=== PATIENT | female | born 1985 | race Caucasian/White ===

== ENCOUNTER 2019-01-24 03:47 | Inpatient (IN) | payer MEDICAID ==
[~2019-01-24] VITALS: Ht 154.9 cm; Wt 77.1 kg
[2019-01-24 03:50] VITALS: BP_SYST 136
--- NOTE | 2019-01-24 04:13 | NUR ---
Patient to ER bed 3 to gown for evaluation. Side rails up. Report given to Sybil SKINNER.
--- NOTE | 2019-01-24 04:22 | NUR ---
REPORT GIVEN TO JOHN SKINNER
--- NOTE | 2019-01-24 04:22 | NUR ---
patient arrived from home AOx4 with c/o post surgical opening. patient states she had Csection 12/27. patient states is was schedualed and had no complications otherwise. patients surgical site became red and irritated 7 days postop. patients redness got worse and she saw her primary care 01/21. patient was given antibiotics. patients surgical site is closed. patient has redness down into her pelvic area and above her surgical site. patient has moderate purulent drainage upon palpation. patient has pain with movement and palpation. patient has normal active bowelsounds. patient is able to pass gas. no other complaint or injury at this time.
[2019-01-24] MEDS ORDERED: IOHEXOL 100 ML IV ONE (05:06)
--- NOTE | 2019-01-24 05:11 | NUR ---
ER at bedside examining patient.
[2019-01-24 05:58] LABS: HEMATOCRIT 35.2 % (36-48); HEMOGLOBIN 11.7 g/dL (12.0-16.0); MEAN CORPUSCULAR HEMOGLOBIN 31 pg (27-31); MEAN CORPUSCULAR HGB CONC 33 % (32-36); MEAN CORPUSCULAR VOLUME 94 fL (79.0-98.0); PLATELET COUNT (AUTO) 301 K/uL (130-430); RED BLOOD CELL COUNT(AUTO) 3.74 MIL/uL (4.2-6.2); RED CELL DISTRIBUTION WIDTH 13.5 % (9.0-15.0); WHITE BLOOD COUNT (AUTO) 12.8 K/uL (4.8-10.8)
[2019-01-24 06:16] LABS: CALCIUM 8.4 mg/dL (8.4-11.0); CREATININE 0.59 mg/dL (0.55-1.30); POTASSIUM 3.5 mmol/L (3.5-5.1)
[2019-01-24 06:22] LABS: ALBUMIN 2.2 g/dL (3.4-4.8); TOTAL BILIRUBIN 0.1 mg/dL (0.0-1.0)
[2019-01-24] MEDS ORDERED: VANCOMYCIN HCL 1,000 MG in NS 250 ML IV ONE (06:30)
--- NOTE | 2019-01-24 07:20 | NUR ---
Received report from BRODY Gorman. Patient to be admitted or transferred. Patient in bed, resting, no s/s of acute distress noted. Will continue to monitor.
[2019-01-24 07:27] LABS: BILIRUBIN,URINE NEGATIVE (NEGATIVE); BLOOD, URINE 2+ (NEGATIVE); CLARITY/URINE SL HAZY (CLEAR); COLOR,URINE YELLOW (YELLOW); GLUCOSE,URINE NEGATIVE (NEGATIVE); KETONES,URINE NEGATIVE (NEGATIVE); LEUKOCYTE ESTERASE ,URINE NEGATIVE (NEGATIVE); NITRITE, URINE NEGATIVE (NEGATIVE); PH,URINE 6.5 (5.0-8.0); PROTEIN URINE NEGATIVE (NEGATIVE); UROBILINOGEN,URINE 0.2 (0.2-1.0)
[2019-01-24 07:39] LABS: BACTERIA,URINE FEW /HPF (None Seen); WBC,URINE 0-3 /HPF (0-3)
--- NOTE | 2019-01-24 08:14 | NUR ---
Patient will be admitted to care of Dr. Brice. Admitted to medsurg unit. Room to be assigned. Belongings list completed. Summary report printed. Report will be given at bedside.
--- NOTE | 2019-01-24 09:21 | NUR ---
CONSULTATION PAGED/CALLED Reason for Consultation: ABDOMINAL WALL CELLULITIS Person Who was Notified: CINTHIA Consulting Physician: DR. LUTHER /DR. 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 GOULD
[2019-01-24] MEDS ORDERED: ONDANSETRON HCL 4 MG/2 ML VIAL IVP PRN (09:30)
[2019-01-24] MEDS ORDERED: ACETAMINOPHEN 650 MG SUPP.RECT RC PRN (09:30)
--- NOTE | 2019-01-24 09:30 | NUR ---
patient in bed sleeping. nmo\\ Addendum: 01/24/19 at 1016 by JAMARCUSKH patient in bed sleeping. no s/s of acute distress noted. will continue to monitor
[2019-01-24] MEDS: PIPERACILLIN/TAZOBACTAM 3.375 GM/ D5W 50 ML IV SCH ×6 (09:34→20:16)
[2019-01-24] MEDS ORDERED: PIPERACILLIN/TAZOBACTAM 3.375 GM/VIAL (ZOSYN) IV ONE (09:39)
--- NOTE | 2019-01-24 10:03 | NUR ---
ADMISSION NOTE Received patient from ER via jf, received report from DARIO SKINNER. Patient admitted with diagnosis of CELLULITIS OF ABDOMINAL WALL. Patient oriented to hospital routine, call light, toileting and safety-patient verbalized understanding.
--- NOTE | 2019-01-24 10:10 | NUR ---
Patient will be admitted to care of Dr Plascencia. Admitted to med/surg unit. Will go to room 124b. Belongings list completed. Summary report printed. Report will be given at bedside.
[2019-01-24 10:20] VITALS: BP_SYST 107
--- NOTE | 2019-01-24 10:35 | NUR ---
INITIAL ADMISSION NOTE Patient resting in the bed. No acute distress. AAO x 4. Skin warm and dry to touch. SL intact to RAC, no redness, no swelling, patent. Discussed the safety issue, use call light when needs help, and plan of care, verbally understanding. Safety measure maintained. Call light within reached. Bed locked in low position, side rails up. Will continue to monitor.
--- NOTE | 2019-01-24 11:10 | NUR ---
SEEN AND EXAMINED BY ROBERTO CHAVEZ.
[2019-01-24 11:19] LABS: ATYPICAL LYMPHOCYTES % 0 % (0-0); BAND % (MANUAL) 2 % (0-6); BASOPHILS % (MANUAL) 0 % (0-2); EOSINOPHILS % (MANUAL) 0 % (0-7); LYMPHOCYTES % (MANUAL) 11 % (20-46); MONOCYTES % (MANUAL) 5 % (0-11)
[2019-01-24] MEDS: VANCOMYCIN HCL 750 MG in NS 250 ML IV SCH ×2 (11:30→18:18)
[2019-01-24 12:00] VITALS: BP_SYST 122
--- NOTE | 2019-01-24 12:25 | NUR ---
CALLED OB UNIT REGARDING THE PATIENT NEEDS THE PUMP FOR PUMPING MILK.
--- NOTE | 2019-01-24 13:26 | NUR ---
ROUND Patient resting in the bed. No acute distress. Breast pumping machine at bedside. Family at bedside. Safety measure maintained. Call light within reached. Continue to monitor,
[2019-01-24] MEDS: MORPHINE 2 MG/ML INJ. SYRINGE IVP PRN ×2 (15:44→20:16)
[2019-01-24 15:45] VITALS: BP_SYST 108
--- NOTE | 2019-01-24 15:45 | NUR ---
MORPHINE GIVEN Patient c/o abdomen pain 11/11, Morphine 2 mg IVP given as ordered. No acute distress. IV intact, Zosyn infusing well. Safety measure maintained. Call light within reached. Bed locked in low position, side rails up. Family at bedside. Continue to monitor.
--- NOTE | 2019-01-24 18:15 | NUR ---
PATIENT DO NOT WANT TO PUMP MILK OB nurseMiriam at bedside and educated and explained to the patient what to do if do not want to pump the milk, verbally understanding. Pump machine returned to OB unit and abdomen binder provided to patient to apply on the breast. Per patient will do it herself later.
--- NOTE | 2019-01-24 19:00 | NUR ---
CLOSING NOTE Patient resting in the bed. No acute distress. No c/o pain at this time. Skin warm and dry to touch. IV intact to RAC, no redness, no swelling, no drainage, infusing Vancomycin at this time. Abdomen wound intact to clean and dry dressing, no active bleeding/ drainage noted at this time. All needs met. Safety measure maintained. Bed locked in low position, side rails up. Call light within reached. Will endorse to night nurse.
--- NOTE | 2019-01-24 19:56 | NUR ---
Initial note: Received report from chaim RN. Patient is awake in bed, no distress noted. Alert and oriented x4. Even and unlabored breathing on room air. IV antibiotics infusing well to right AC IV site, no infiltration noted. Abdominal dressing change and wound care was performed by chaim RN, dressing is clean, dry, intact. Call light with patient. Safety and fall precautions in place. Will continue with plan of care.
[2019-01-24 20:00] VITALS: BP_SYST 113
[2019-01-24] MEDS ORDERED: SEVOFLURANE 15 MIN GAS INH ONE (20:00)
[2019-01-24] MEDS ORDERED: ONDANSETRON HCL 4 MG/2 ML VIAL IVP ONE (20:00)
[2019-01-24] MEDS ORDERED: MIDAZOLAM HCL 5 MG/5 ML VIAL IVP ONE (20:00)
[2019-01-24] MEDS ORDERED: KETOROLAC TROMETHAMINE 30 MG VIAL IVP ONE (20:00)
[2019-01-24] MEDS ORDERED: LR 1,000 ML IV.SOLN IV ONE (20:00)
[2019-01-24] MEDS ORDERED: PROPOFOL 200MG/ 20ML VIAL (DIPRIVAN) IV ONE (20:00)
[2019-01-24] MEDS ORDERED: NS IRRIG SOLN 1000 ML IR ONE (20:00)
[2019-01-24] MEDS ORDERED: fentaNYL CITRATE/PF 100 MCG/2 ML AMP IVP ONE (20:00)
--- NOTE | 2019-01-24 20:41 | NUR ---
Pain: Patient is complaining of severe abdominal pain. Educated patient regarding indications and side effects of Morphine, understanding verbalized. Morphine 2 MG administered intravenously as ordered. No adverse reactions noted. Call light with patient. Safety and fall precautions in place. Will continue to monitor.
[2019-01-24] MEDS: ACETAMINOPHEN 325 MG TABLET PO PRN (23:16)
--- NOTE | 2019-01-24 23:31 | NUR ---
Pain: Patient is complaining of abdominal pain 3/10 and requested Tylenol. Education provided regarding indications and side effects. Tylenol 650 MG PO administered. Call light is with patient. Safety, fall precautions in place. Will continue monitoring.
[2019-01-25 00:42] VITALS: BP_SYST 108
[2019-01-25] MEDS: VANCOMYCIN HCL 750 MG in NS 250 ML IV SCH ×3 (01:57→18:02)
--- NOTE | 2019-01-25 02:08 | NUR ---
Rounds: Patient is asleep, no distress noted. Tolerating room air, even and unlabored breathing. IV antibiotics infusing well to right AC IV site. Call light is with patient. Will continue monitoring.
[2019-01-25] MEDS: PIPERACILLIN/TAZOBACTAM 3.375 GM/ D5W 50 ML IV SCH ×4 (03:39→08:58)
--- NOTE | 2019-01-25 04:25 | NUR ---
Rounds: Patient is asleep, no acute distress noted. Even, unlabored breathing on room air. IV fluids infusing as ordered. Call light with patient. Safety and fall precautions in place. Will continue monitoring.
--- NOTE | 2019-01-25 06:51 | NUR ---
Closing note: Patient is sleeping in bed, no distress noted. Tolerating room air. IV site is saline locked, patent and benign. Abdominal dressing is clean, dry, and intact. All needs met. Safety and fall precautions maintained. Hourly rounding performed throughout shift. Will endorse care to dayshift RN.
[2019-01-25 07:03] LABS: ALBUMIN 2.1 g/dL (3.4-4.8); CALCIUM 8.6 mg/dL (8.4-11.0); CREATININE 0.7 mg/dL (0.55-1.30); TOTAL BILIRUBIN 0.3 mg/dL (0.0-1.0)
[2019-01-25 07:11] LABS: BASOPHILS # (AUTO) 0.1 K/uL (0.0-0.2); BASOPHILS % (AUTO) 0.7 % (0.0-2.0); EOSINOPHILS # (AUTO) 0.3 K/uL (0.0-0.4); EOSINOPHILS % (AUTO) 2.5 % (0.0-4.0); HEMATOCRIT 36.6 % (36-48); LYMPHOCYTES # (AUTO) 2.5 K/uL (1.0-5.5); LYMPHOCYTES % (AUTO) 23.5 % (20.5-51.5); MEAN CORPUSCULAR HEMOGLOBIN 31 pg (27-31); MEAN CORPUSCULAR HGB CONC 33 % (32-36); MEAN CORPUSCULAR VOLUME 95 fL (79.0-98.0); MONOCYTES # (AUTO) 0.6 K/uL (0.0-1.0); MONOCYTES % (AUTO) 5.2 % (1.7-9.3); NEUTROPHILS # (AUTO) 7.2 K/uL (1.8-7.7); NEUTROPHILS % (AUTO) 68.1 % (40.0-70.0); PLATELET COUNT (AUTO) 331 K/uL (130-430); RED BLOOD CELL COUNT(AUTO) 3.86 MIL/uL (4.2-6.2); RED CELL DISTRIBUTION WIDTH 13.5 % (9.0-15.0); WHITE BLOOD COUNT (AUTO) 10.6 K/uL (4.8-10.8)
--- NOTE | 2019-01-25 07:45 | NUR ---
OPENING NOTES, RECEIVED PT IN BED, PT IS AAOX4, DENIES PAIN, NO FEVER, BP WNL, HR IS 51 BUT SIGNS AND SYMPTOMS OF BRADYCARDIA, SALINE ON R. AC INTACT AND PATENT. WOUND DRESSING INTACT , NO DRAINAGE NOTED. SAFETY PRECAUTION KEPT IN PLACE. CALL LIGHT IN REACH. BED IN LOW POSITION. ENCOURAGED TO CALL FOR ASSIST AND FOR CONCERNS. WILL MONITOR.
[2019-01-25 07:51] VITALS: BP_SYST 110
[2019-01-25] MEDS: ACETAMINOPHEN 325 MG TABLET PO PRN ×2 (08:59→20:34)
--- NOTE | 2019-01-25 10:00 | NUR ---
PT IN BED, HAD GOOD PAIN RELIEF FROM TYLENOL , AM ANTIBIOTICS GIVEN. WILL CONT TO MONITOR.
--- NOTE | 2019-01-25 10:33 | NUR ---
CONSULTATION PAGED REASON FOR CONSULTATION:ABD. WALL CELLULITIS WAS CONSULT CALLED?Y PERSON WHO WAS NOTIFIED:SAM CONSULTING PHYSICIAN:CHING RAMOS FLY FISHING GUIDE SPECIALTY:ID FLY FISHING GUIDE PHONE NUMBER:[phone] REQUESTING PHYSICIAN:QUINN ALLEN
--- NOTE | 2019-01-25 12:30 | NUR ---
PT IN BED, RESTING. NO C/O PAIN. WILL CONT TO MONITOR.
[2019-01-25 13:00] VITALS: BP_SYST 111
[2019-01-25] MEDS: CLINDAMYCIN 600 MG in D5W 50 ML IV SCH ×2 (13:33→21:47)
[2019-01-25] MEDS: MORPHINE 2 MG/ML INJ. SYRINGE IVP PRN ×2 (15:26→21:55)
--- NOTE | 2019-01-25 16:20 | NUR ---
WOUND CARE DONE. PT TOLERATED WELL. NO C/O PAIN.
[2019-01-25 17:13] VITALS: BP_SYST 118
--- NOTE | 2019-01-25 18:17 | NUR ---
CLOSING NOTES, PT HAS BEEN STABLE THE WHOLE SHIFT, NO FEVER, GIVEN PAIN MEDS WITH GOOD PAIN RELIEF, WOUND CARE DONE, PT TOLERATED WELL. ALL ORDERED IV ABX GIVEN. PT IS AMBULATORY. SAFETY PRECAUTION KEPT IN PLACE. NO FALLS. WILL ENDORSE TO NIGHT NURSE.
--- NOTE | 2019-01-25 19:15 | NUR ---
OPENING NOTES Pt and endorsement received from day shift nurse. Pt is AAOx4, lying in bed. IVPB infusing well on right AC G18. No complains of pain or discomfort at this time. No signs of acute distress or SOB noted. Encouraged to use call light when needed. Safety precautions in place with 2 side rails up, wheels locked, and bed in lowest level. Call light with pt. Will continue to monitor.
[2019-01-25 20:28] VITALS: BP_SYST 124
--- NOTE | 2019-01-25 20:34 | NUR ---
TYLENOL GIVEN Pt complained of abdominal pain with a scale of 3/10. Tylenol 650mg PO given as ordered. No signs of acute distress noted. Will continue to monitor.
--- NOTE | 2019-01-25 21:55 | NUR ---
IV INSERTION/MORPHINE GIVEN Pt's old IV site was infiltrated, new IV inserted by BRODY Garrett on left hand G22. With good blood return and flushable with saline. Pt complained of abdominal pain with a scale of 8/10. Morphine 2mg IVP given as ordered. Educated on safety and side effects like dizziness, pt verbalized understanding. Safety precautions in place and call light with pt. Will continue to monitor.
[2019-01-26] VITALS (10 sets, daily range): BP systolic 100–115
[2019-01-26] MEDS: VANCOMYCIN HCL 1,000 MG in NS 250 ML IV SCH ×2 (01:00→10:29)
--- NOTE | 2019-01-26 01:29 | NUR ---
ROUNDS Pt is resting in bed with both eyes closed, with visible chest rise and fall with non-labored breathing noted. IVPB infusing well. No complains of pain and no signs of acute distress noted. Safety precautions in place and call light with pt. Will continue to monitor.
--- NOTE | 2019-01-26 03:59 | NUR ---
ROUNDS Pt is resting in bed with both eyes closed, with visible chest rise and fall with non-labored breathing noted. Pt is easily arousable. No signs of acute distress noted. No needs at this time. Safety precautions in place and call light with pt. Will continue to monitor.
[2019-01-26] MEDS: CLINDAMYCIN 600 MG in D5W 50 ML IV SCH ×2 (05:01→14:00)
--- NOTE | 2019-01-26 06:45 | NUR ---
CLOSING NOTES Pt is resting in bed with both eyes closed, with visible chest rise and fall with non-labored breathing noted. No complains of pain or discomfort at this time. No signs of acute distress or SOB noted. All needs attended throughout the shift. Safety precautions maintained with 2 side rails up, wheels locked and bed in lowest position. Call light with pt. Will endorse to day shift nurse.
--- NOTE | 2019-01-26 06:52 | NUR ---
CONSULTATION: REASON FOR CONSULT: CELLULITIS CONSULTING PHYSICIAN: CHAR HOWELL MD ORDERED BY: QUINN DENNIS MD SPOKE WITH [facility] [phone]
--- NOTE | 2019-01-26 07:40 | NUR ---
OPENING NOTES: RECEIVED PATIENT FROM DATA ENTRY SPECIALIST NURSE. PATIENT IS AWAKE AND ALERT x4. PATIENT DENIES ANY PAIN AT THE MOMENT. NO SIGNS OF DISTRESS OR SHORTNESS OF BREATH NOTED. PATIENT IS TOLERATING OXYGEN AT ROOM AIR. IV SITE IS PATENT WITH NO SIGNS OF INFILTRATION. PATIENT IN STABLE CONDITION. SAFETY AND FALL PRECAUTIONS ARE IN PLACE. BED LOCKED IN LOWEST POSITION WITH CALL LIGHT IN REACH. WILL CONTINUE TO MONITOR PATIENT FOR ANY CHANGES.
--- NOTE | 2019-01-26 10:00 | NUR ---
RN ROUNDS: PATIENT IS AWAKE AND ALERT x4. PATIENT DENIES ANY PAIN AT THE MOMENT. NO SIGNS OF DISTRESS OR SHORTNESS OF BREATH. PATIENT IN STABLE CONDITION. WILL CONTINUE TO MONITOR PATIENT FOR ANY CHANGES.
[2019-01-26] MEDS: ACETAMINOPHEN 325 MG TABLET PO PRN (10:30)
--- NOTE | 2019-01-26 12:20 | NUR ---
RN ROUNDS: PATIENT IS AWAKE AND ALERT x4. NO SIGNS OF DISTRESS OR SHORTNESS OF BREATH NOTED. PATIENT STATES SHE IS NO LONGER IN PAIN. PATIENT IN STABLE CONDITION. WILL CONTINUE TO MONITOR PATIENT FOR ANY CHANGES.
[2019-01-26] MEDS ORDERED: POLYETHYLENE GLYCOL 3350, 17 GM/ POWD.PACK PO ONE (13:00)
--- NOTE | 2019-01-26 13:30 | NUR ---
MD ROUNDS: DR. HOWELL MAKING ROUNDS. AWARE OF PATIENT'S CONDITION. PATIENT WILL HAVE AN INCISION AND DRAINAGE OF THE ABDOMEN AT 1930 TONIGHT.
--- NOTE | 2019-01-26 14:15 | NUR ---
RN ROUNDS: PATIENT AWAKE AND ALERT x4. FAMILY AT BEDSIDE. PATIENT DENIES ANY PAIN AT THE MOMENT. NO SIGNS OF DISTRESS OR SHORTNESS OF BREATH. PATIENT IN STABLE CONDITION. WILL CONTINUE TO MONITOR PATIENT FOR ANY CHANGES.
--- NOTE | 2019-01-26 16:13 | NUR ---
RN ROUNDS: PATIENT AWAKE AND ALERT x4. FAMILY AT BEDSIDE. PATIENT DENIES ANY PAIN AT THE MOMENT. NO SIGNS OF DISTRESS OR SHORTNESS OF BREATH NOTED. PATIENT IN STABLE CONDITION. WILL CONTINUE TO MONITOR PATIENT FOR ANY CHANGES.
--- NOTE | 2019-01-26 16:55 | NUR ---
Wound Consult Attempted: Dr. Medley saw patient and assessed Abdominal wound, which was draining a lot and the dressing was applied quickly to slow down the drainage. The patient was scheduled for an Incision & Drainage today at [address] Medley. Will await orders by Dr. Medley and assess the site post surgery.
--- NOTE | 2019-01-26 18:37 | NUR ---
CLOSING NOTES: PATIENT IS AWAKE AND ALERT x4 SITTING UP IN BED. PATIENT DENIES ANY PAIN AT THE MOMENT. NO SIGNS OF DISTRESS OR SHORTNESS OF BREATH NOTED. PATIENT IS TOLERATING OXYGEN AT ROOM AIR. IV SITE IS PATENT WITH NO SIGNS OF INFILTRATION. PATIENT IN STABLE CONDITION. SAFETY AND FALL PRECAUTIONS ARE IN PLACE. BED LOCKED IN LOWEST POSITION WITH CALL LIGHT IN REACH. WILL ENDORSE PATIENT CARE TO ONCOMING GLOBAL CHIEF CREATIVE OFFICER NURSE. Addendum: 01/26/19 at 1843 by Nimco Mcmahan RN PATIENT HAD CHG BATH ALREADY AND AWAITING SURGERY THIS EVENING, PT NPO.
--- NOTE | 2019-01-26 19:34 | NUR ---
TO OR Pt was wheeled to OR via gurney with OR nurse. Pt in stable condition. No complains of pain and no signs of acute distress noted. Pt's family assisted to waiting area.
[2019-01-26] MEDS ORDERED: fentaNYL CITRATE/PF 100 MCG/2 ML AMP IVP PRN ×2 (20:45)
[2019-01-26] MEDS ORDERED: ONDANSETRON HCL 4 MG/2 ML VIAL IVP PRN (20:45)
[2019-01-26] MEDS ORDERED: KETOROLAC TROMETHAMINE 30 MG VIAL IVP PRN (20:45)
[2019-01-26] MEDS ORDERED: fentaNYL CITRATE/PF 100 MCG/2 ML AMP ONE (21:30)
--- NOTE | 2019-01-26 21:32 | NUR ---
FROM PACU Pt came back from PACU via gurney with PACU nurse. Pt's abdominal dressing is clean, dry and intact. No complains of pain at this time. No signs of acute distress noted. Vital signs taken and recorded. Will monitor vital signs every 15 mins in one hour and every 30 mins in the next hour. IVF infusing well. Family at bedside.
[2019-01-26] MEDS: ceFAZolin SODIUM 1 GM in D5W 50 ML IV SCH (22:11)
[2019-01-26] MEDS ORDERED: ceFAZolin SODIUM 1 GM VIAL ONE (22:14)
--- NOTE | 2019-01-26 22:47 | NUR ---
PAIN MED Pt complained of abdominal pain on incision site. Vital signs taken and recorded. Pain med given via IVP. Educated on safety and side effects like drowsiness, pt verbalized understanding. No signs of acute distress noted. Safety precautions in place and call light with pt. Will continue to monitor.
[2019-01-27 00:05] VITALS: BP_SYST 107
--- NOTE | 2019-01-27 00:07 | NUR ---
ROUNDS Pt is AAOx4, lying in bed. Vital signs taken and recorded. No complains of pain and no signs of acute distress noted. No needs at this time. Safety precautions in place and call light with pt. Will continue to monitor.
[2019-01-27 00:17] VITALS: BP_SYST 107
--- NOTE | 2019-01-27 03:20 | NUR ---
ROUNDS Pt is resting in bed with both eyes closed, with visible chest rise and fall with non-labored breathing noted. Pt is easily arousable. No signs of acute distress noted. Safety precautions in place and call light with pt. Will continue to monitor.
[2019-01-27] MEDS: ceFAZolin SODIUM 1 GM in D5W 50 ML IV SCH ×2 (05:11→14:18)
--- NOTE | 2019-01-27 06:23 | NUR ---
CLOSING NOTES Pt is resting in bed with both eyes closed, with visible chest rise and fall with non-labored breathing noted. No complains of pain or discomfort at this time. No signs of acute distress or SOB noted. All needs attended throughout the shift. Safety precautions maintained with 3 side rails up, wheels locked and bed in lowest position. Call light with pt. Will endorse to day shift nurse.
--- NOTE | 2019-01-27 07:20 | NUR ---
AM ROUNDS: BEDSIDE REPORT RECEIVED FROM THEO.PATIENT LYING IN THE BED,AWAKE ,ALERT AND ORIENTED X4. C/O PAIN 1-3 LEVEL. WILL F/U PAIN MEDS DURING BREAKFAST PER PATIENT. CALL LIGHT WITH IN REACH. BED LOCKED IN LOW POSITION. NO DISTRESS.
[2019-01-27] MEDS: ACETAMINOPHEN 325 MG TABLET PO PRN ×2 (08:19→14:19)
[2019-01-27 08:27] VITALS: BP_SYST 117
--- NOTE | 2019-01-27 08:45 | NUR ---
DC planning: Rec'd order for home health for wet to dry dressing--faxed orders to [facility] at fax#[phone]-and requested them to call me--DENNIS SKINNER
[2019-01-27] MEDS ORDERED: POLYETHYLENE GLYCOL 3350, 17 GM/ POWD.PACK PO SCH (09:00)
--- NOTE | 2019-01-27 10:00 | NUR ---
RN ROUNDS: STABLE. NOT IN ANY DISTRESS.
--- NOTE | 2019-01-27 11:18 | NUR ---
Case mgt: S/W Mercedes at [facility] [phone]--She is arranging [facility] and is aware pt needs DAILY wet-to-dry gauze dressing changes with normal saline--newer order that includes supplies has been faxed to Mercedes at [facility] fax#[phone]--Mercedes is arranging the home health and our nurse Clara made aware pt needs 2 days supplies of gauze dressings and normal saline to go home with her until supplies can be ordered by [employer]. Pt gave updated [id number] in her address--Mercedes was given this info also- RN
--- NOTE | 2019-01-27 11:21 | NUR ---
Discharge Planning: [facility] (p [phone])
--- NOTE | 2019-01-27 13:00 | NUR ---
RN ROUNDS: RESTING. STABLE.
[2019-01-27 13:01] VITALS: BP_SYST 105
--- NOTE | 2019-01-27 15:15 | NUR ---
RN ROUNDS: NO COMPLAINED MADE. NO ACUTE DISTRESS.
[2019-01-27 16:17] VITALS: BP_SYST 113
[2019-01-27] MEDS: MORPHINE 2 MG/ML INJ. SYRINGE IVP PRN (18:09)
--- NOTE | 2019-01-27 18:15 | NUR ---
DRESSING CHANGE: IV PAIN MEDS GIVEN 30MINS PRIOR TO DRESSING CHANGED.DR HOWELL CAME AND DID WET TO DRY DRESSING. CLEANSE WITH NS,PACKED WITH 4X4 X2 AND PUT DRY 4X4 X2 OVER IT AND COVERED WITH ABDOMINAL PAD.
--- NOTE | 2019-01-27 18:30 | NUR ---
CLOSING NOTES: ENDORSED TO NIGHT NURSE PATIENT IN STABLE CONDITION. LOWER ABDOMEN INCISION DRESSING CHANGED BY DR HOWELL.WET TO DRY DRESSING DONE. WILL BE KASANDRA NOBLE.
--- NOTE | 2019-01-27 19:15 | NUR ---
Pt is fully awake, alert and oriented x4. Pt is being dc'd home tonight and she declined photo of abdominal wound. Dressing is dry and intact. No c/o pain or discomfort at this time.
[2019-01-27 19:52] VITALS: BP_SYST 117
[2019-01-27] MEDS ORDERED: CEPH-568 PO (20:05)
--- NOTE | 2019-01-27 20:38 | NUR ---
Pt was dc'd home via wheelchair with all her belongings in stable condition. Transition of care/discharge instructions, including Rx for Keflex and Medication side effects fact sheet were explained and given to pt who verbalized understanding. Saline lock in LH was removed with the Angiocath intact. Wrist ID band was removed and placed in the shredder. While RN was in the room, Agency called pt and stated RN will see pt at home tomorrow for wound care. Pt stated the caller informed her that the RN will assist her with dressing changes for 3 days. Pt then stated her [id number] who is an HEATER ROOM HELPER will assist her with dressing changes afterwards. Addendum: 01/27/19 at 2311 by Skye Mckninon RN Pt stated Surgeon gave her his business card and someone from his office will call her for f/u appointment.
== END 2019-01-27 20:38 | disposition home health service (06) | DRG 721 ==
LOC: SED 03:47 → SMU 08:12
PROVIDERS: ADMIT Internal Medicine Hospice and Palliative Medicine; ATTEND Internal Medicine Hospice and Palliative Medicine
PROC: 0JBC0ZZ Excision of Pelvic Region Subcutaneous Tissue and Fascia, Open Approach (ICD-10-PCS; principal; 2019-01-26 20:00)
DX: T81.41XA Infection following a procedure, superficial incisional surgical site, initial encounter (principal); L03.311 Cellulitis of abdominal wall; I10 Essential (primary) hypertension; J45.909 Unspecified asthma, uncomplicated; N73.9 Female pelvic inflammatory disease, unspecified; Y83.8 Other surgical procedures as the cause of abnormal reaction of the patient, or of later complication, without mention of misadventure at the time of the procedure; Y92.89 Other specified places as the place of occurrence of the external cause
CPT/HCPCS: 36415; 80053; 80202-TC; 81000-TC; 85007; 85025; 85027; 87040-TC; 87070-TC; 87075-TC; 87081; 87186-TC; 94760; 96365; 99285; J0690; J1885; J2250; J2270; J2405; J2543; J2704; J3010; J3370; J3490; J7050; J7060; J7120; Q9967